=== PATIENT | female | born 1960 | race American Indian/Alaskan Native ===

== ENCOUNTER 2016-07-25 06:57 | Inpatient (IN) | payer OTHER ==
--- NOTE | 2016-07-18 13:57 | Anesthesia Consultation ---
Anesthesia Consult and Med Hx Date of service: 07/18/16 - Airway Anesthetic Teeth Evaluation: Good, Bridges (rear) ROM Head & Neck: Adequate Mental/Hyoid Distance: Adequate Mallampati Class: Class II Intubation Access Assessment: Probably Good - Pulmonary Exam CTA: Yes - Cardiac Exam Cardiac Exam: RRR - Pre-Operative Health Status ASA Pre-Surgery Classification: ASA3 Proposed Anesthetic Plan: General - Pulmonary Hx Smoking: Yes (2 PACKS PER WEEK X 3 MONTHS) Hx Asthma: Yes (EXCERISE INDUCED, LAST EPISODE 2011) Hx Sleep Apnea: Yes (DX SLEEP APNEA WITH CPAP USE.) - Cardiovascular System Hx Hypertension: No - Central Nervous System Hx Back Pain: Yes Hx Psychiatric Problems: Yes (depression, PTSD) - Gastrointestinal Hx Gastroesophageal Reflux Disease: Yes (Hiatal hernia) - Endocrine Hx Non-Insulin Dependent Diabetes: Yes (no meds) - Hematic Hx Anemia: Yes - Other Systems Hx Cancer: No Hx Obesity: Yes (BMI 36.3) - Additional Comments Anesthesia Medical History Comments: NAILAD, OA. Irregular heart beat in 2010. Hiatal hernia
[2016-07-18 14:22] LABS: Alanine Aminotransferase 12 units/L (7-56); Albumin/Globulin Ratio 1.1 %; Alkaline Phosphatase 73 units/L (35-129); Anion Gap 20 mmol/L; BUN/Creatinine Ratio 14.28; Blood Urea Nitrogen 10 mg/dL (7-17); Calcium 8.8 mg/dL (8.4-10.2); Carbon Dioxide 21 mmol/L (22-30); Chloride 103.4 mmol/L (98-107); Glucose 98 mg/dL (65-100); Potassium 4.1 mmol/L (3.6-5.0); Sodium 140 mmol/L (137-145); Total Protein 7.5 g/dL (6.3-8.2)
[2016-07-18 14:23] LABS: Basophils % (Auto) 0.8 % (0.0-1.8); Eosinophils % (Auto) 4.9 % (0.0-4.3); Hematocrit 41.2 % (30.3-42.9); Hemoglobin 13.1 gm/dl (10.1-14.3); Mean Corpuscular HGB Conc 32 % (30-34); Mean Corpuscular Hemoglobin 27 pg (28-32); Mean Corpuscular Volume 85 fl (79-97); Platelet Count 277 K/mm3 (140-440); Red Blood Count 4.83 M/mm3 (3.65-5.03); Red Cell Distribution Width 14.7 % (13.2-15.2); White Blood Count 6.6 K/mm3 (4.5-11.0)
[2016-07-18 14:34] LABS: INR 0.96 (0.87-1.13)
[2016-07-18 14:35] LABS: Partial Thromboplastin Time 33.6 Sec. (24.2-36.6)
--- NOTE | 2016-07-24 20:10 | Admit Criteria Form ---
Admission Criteria Documentation: AMBULATORY SURGERY EXCEPTION CRITERIA Ambulatory Surgery Exception Criteria ( Place 'X' for any and all applicable criteria): Surgery or procedure performed on ambulatory basis may require inpatient stay for[A] ANY ONE of the following(1)(2)(3)(4)(5)(6)(7)(8)(9): [X] I. A preoperative situation, condition, or finding that warrants inpatient stay as indicated by ANY ONE of the following: [] a) Inpatient care needed because of severity of a disease or condition rather than the surgery (eg, severe cardiac or respiratory disease, severe infection) (15) (16 ) (17) (18) [] b) Emergent procedure (eg, angioplasty for acute ischemia)(19) [] c) Complex surgical approach or situation as indicated by ANY ONE of the following(3): [] i) Open approach needed instead of usual endoscopic, transcatheter, or other less invasive procedure [] ii) Difficult approach because of previous operation [] iii) Airway monitoring required after open neck procedures(20)(21) [] iv) Large mass requiring unusually extensive dissection [] v) Additional complicating feature requiring inpatient care (eg, drain management)(22(23): [X] d) Major surgery in a pt with high anesthetic risk as indicated by ANY ONE of the following (2)(3)(5)(7)(8): [X] i) ASA risk class III or higher (severe systemic disease impairing function) [D] [] ii) Advanced age (eg, older than 85 years)(14)(24) [] iii) Symptomatic heart failure(25) [] iv) Symptomatic asthma or COPD(8)(21) [] v) Morbid obesity with hemodynamic or respiratory problems(20)( 21)(26)(27) [] vi) Obstructive sleep apnea(20)(21) [] vii) Former premature infants who are younger than 60 weeks [] viii) High risk for severe postoperative abnormalities (eg, severe postoperative hypocalcemia after parathyroidectomy for severe hyperparathyroidism)(27)( 28) [] ix) Unstable angina(25) [] e) Drug-related risk requiring inpatient stay as indicated by ANY ONE of the following(5)(10)(14)(32)(33) [] i) Procedure requires discontinuing drugs or other therapy (eg , antiarrhythmic medication, antiseizure medication), which necessitates inpatient observation or treatment.(18)(31) [] ii) Major surgery and high risk drug use as indicated by ANY ONE of the following: [] 1) Active abuse of cocaine or similar drug [] 2) Monoamine oxidase inhibitor use [] 3) Other drug identified as posing risk [] f) Inadequate outpatient care situation as indicated by ANY ONE of the following(5)(10)(14)(32)(33) [] i) Patient lives remote from medical facility and procedure has urgent complication potential, and temporary nearby residence cannot be arranged [] ii) Patient will have postprocedure incapacitation and inadequate assistance at home, or alternative level of care cannot be arranged. [] iii) Patient will have long general anesthesia or procedure side effect resolution time, and competent person to stay with patient on first postoperative night at home or alternative level of care cannot be arranged. []iv) Other inadequate outpatient situation that cannot be handled by other means [] II. A perioperative event, condition, or finding that warrants inpatient stay as indicated by ANY ONE of the following (1)(2)(3): [] a) Inadequate physiologic recovery: cardiovascular, respiratory, or hemodynamic status not normal or near preoperative baseline(18) [] b) Hemodynamic instability [] c) Patient not alert with near normal or baseline mental status [] d) Temperature not normal or as expected and not appropriate for outpatient treatment of condition [] e) Ambulatory or appropriate activity level status not yet achieved post procedure [E](34)(35)(36) [] f) Operative site not appropriate (eg, unexpected or excessive drainage or bleeding) [] g) Postoperative effects not resolved or adequately managed (eg, significant pain or vomiting not appropriate for outpatient or next level of care)(10)(12) [] h) Complicating features requiring inpatient care as indicated by ANY ONE of the following(37): [] i) Severe complications of procedure (eg, bowel injury, airway compromise, vascular injury,severe hemorrhage) [] ii) Extensive (eg, dissection far beyond usual scope of procedure ) or prolonged (eg, 120 minutes beyond usual) surgery needed requiring inpatient postoperative care [] iii) Conversion to an open or complex procedure that requires inpatient care (eg, open vs laparoscopic cholecystectomy, abdominal vs vaginal hysterectomy)(38) [] iv) Comorbid condition or test result identified during or post procedure that requires inpatient care (7) [] v) Malignant hyperthermia(30) [] vi) Other complicating feature requiring inpatient care(22)(23) Inpatient stay may be needed until ALL of the following are present (1)(2)(3)(4) (5)(6)(10)(14)(33)(40): []a) Physiologic recovery: cardiovascular, respiratory, and hemodynamic status normal or near preoperative baseline []b) Hemodynamic stability []c) Patient alert, with near normal or baseline mental status []d) Temperature appropriate: patient afebrile or temperature appropriate for outpt treatment of condition []e) Activity level appropriate: ambulatory or appropriate activity level post procedure []f) Operative site appropriate as indicated by ALL of the following: []i) Site dry or with expected drainage []ii) Any blood noted is as expected for procedure. []g) Postoperative effects resolved or managed as indicated by ALL of the following: []i) Pain management appropriate for outpatient (or next level of) care(10) []ii) Minimal nausea and vomiting: if present, successfully treated with oral medication(12) []iii) Headache, dizziness, or drowsiness (if present) are mild. []h) Voiding status acceptable as indicated by ANY ONE of the following: []i) Voiding spontaneously []ii) No voiding but instructions given for follow-up in 6 to 8 hours []iii) Urinary catheter in place, and instructions given for follow-up []i) Complicating features requiring inpatient care manageable at a lower level of care(37) []j) Comorbid conditions manageable at a lower level of care(37) The original [employer] content created by [employer] has been revised. The portions of the content which have been revised are identified through the use of italic text or in bold, and [employer] [facility] [employer] has neither reviewed nor approved the modified material. All other unmodified content is copyright [employer]. Please see references footnoted in the original [employer] edition 2016 Admission Criteria Met: Yes
[~2016-07-25 06:57] MED LIST: DILAUDID ONE; DIPRIVAN 10 MG/ML IV ONE; NACL P/F VIAL (10 ML) IV ONE; NEOSTIGMINE ONE; QUELICIN ONE; ROBINUL ONE; TRANEXAMIC ACID IV ONE; VANCOMYCIN VIAL IV ONE; VANCOMYCIN/NS 1 GM/250 ML 1 GM/250 ML BAG IV NR; XYLOCAINE MPF 2% ONE; ZEMURON IV ONE
--- NOTE | 2016-07-25 07:03 | Anesthesia Day of Surgery ---
Anesthesia Day of Surgery - Day of Surgery Patient Examined: Yes Patient H&P Reviewed: Yes Patient is NPO: Yes
[2016-07-25] MEDS ORDERED: ACD-A 500 ML IV ONE (07:15)
[2016-07-25] MEDS ORDERED: NACL ONE (07:15)
[2016-07-25] MEDS ORDERED: TRANEXAMIC ACID ONE (07:16)
[2016-07-25] MEDS ORDERED: VANCOMYCIN VIAL ONE (07:16)
[2016-07-25] MEDS ORDERED: NEOSPORIN GU IR ONE (07:16)
[2016-07-25] MEDS ORDERED: NACL P/F VIAL (10 ML) 30 ML ONE (07:16)
[2016-07-25] MEDS ORDERED: MARCAINE-EPI 0.25%-1:200,000 INFILTRATI ONE ×2 (07:16→09:42)
[2016-07-25] MEDS ORDERED: NACL 0.9% 1000 ML 1,000 ML IV SCH (07:26)
[2016-07-25] MEDS ORDERED: PEPCID PO NR (07:26)
[2016-07-25] MEDS ORDERED: VERSED IV NR (07:26)
[2016-07-25] MEDS ORDERED: ZOFRAN IV PRN (07:28)
[2016-07-25] MEDS ORDERED: MARCAINE 0.25% INFILTRATI ONE (07:47)
[2016-07-25] MEDS ORDERED: SODIUM CHLORIDE FLUSH SYRINGE 10 ML IV PRN (07:53)
[2016-07-25] MEDS ORDERED: NARCAN 0.4 MG/1 ML IV PRN (07:53)
[2016-07-25] MEDS ORDERED: TRANSDERM-SCOP TD NR (08:00)
[2016-07-25] MEDS ORDERED: DECADRON ONE (08:04)
[2016-07-25] MEDS ORDERED: ZOFRAN ONE (08:04)
[2016-07-25] MEDS ORDERED: MILK OF MAGNESIA PO PRN (09:24)
[2016-07-25] MEDS ORDERED: DULCOLAX PR PRN (09:24)
[2016-07-25] MEDS ORDERED: PERCOCET 5/325 PO PRN (09:24)
[2016-07-25] MEDS ORDERED: AMBIEN PO PRN (09:24)
[2016-07-25] MEDS ORDERED: PHENERGAN PR PRN (09:24)
[2016-07-25] MEDS ORDERED: TORADOL IV PRN (09:24)
[2016-07-25] MEDS ORDERED: NACL 0.9% 1000 ML 1,000 ML ONE (09:31)
[2016-07-25] MEDS ORDERED: NACL 0.9% IV ONE (09:42)
[2016-07-25] MEDS ORDERED: ASPIRIN PO SCH (10:00)
[2016-07-25] MEDS ORDERED: D5NS 1,000 ML IV SCH ×2 (10:00→14:00)
[2016-07-25] MEDS ORDERED: VANCOMYCIN VIAL IV ONE (12:09)
[2016-07-25] MEDS ORDERED: TRANEXAMIC ACID IV ONE (12:10)
[2016-07-25] MEDS ORDERED: NACL P/F VIAL (10 ML) IV ONE (12:10)
[2016-07-25] MEDS: DILAUDID IV PRN ×4 (12:55→14:40)
[2016-07-25] MEDS ORDERED: XYLOCAINE MPF 2% ONE (13:04)
--- NOTE | 2016-07-25 13:27 | Post Anesthesia Evaluation ---
- Post Anesthesia Evaluation Patient Participated: Yes Airway Patent: Yes Stable Respiratory Function: Yes Nausea/Vomiting: No Temp > 96.8F: Yes Pain Manageable: Yes Adequeate Hydration: Yes Anesthesia Complications: No Block Receding Appropriately: Yes Patient on Ventilator: No
[2016-07-25] MEDS ORDERED: TYLENOL PO PRN (13:30)
[2016-07-25] MEDS ORDERED: NORCO 5/325 PO PRN (13:30)
--- NOTE | 2016-07-25 13:36 | Procedure Note ---
Date of procedure: 07/25/16 Pre-op diagnosis: AvN bilateral hips Procedure: Left total hip replacement, DAA Percutaneous drilling, core decompression right hip Anesthesia: GETA Surgeon: PRESLEY EVLAZQUEZ [employer] Flight Attendant: JUANA MENEZES Estimated blood loss: 50-100ml Pathology: list (femoral head) Specimen disposition: to lab Condition: stable Disposition: floor
[2016-07-25] MEDS: fentaNYL-BUPIV 2 MCG/ML-0.125% 200 MCG/100 ML BAG EPIDURAL SCH (14:45)
[2016-07-25] MEDS: ANCEF/NS 1 GM/50 ML 1 GM/50 ML BAG IV SCH (17:59)
[2016-07-25] MEDS: COLACE PO SCH (22:08)
[2016-07-25] MEDS: ASPIRIN PO SCH (22:08)
[2016-07-25] MEDS: TORADOL IV PRN (22:09)
[2016-07-26] MEDS: fentaNYL-BUPIV 2 MCG/ML-0.125% 200 MCG/100 ML BAG EPIDURAL SCH (01:24)
[2016-07-26] MEDS: ZOFRAN IV PRN ×2 (03:38→21:41)
[2016-07-26] MEDS: MORPHINE IV PRN ×3 (03:38→23:43)
[2016-07-26] MEDS ORDERED: BENADRYL IV ONE ×2 (03:54→13:57)
[2016-07-26] MEDS: ANCEF/NS 1 GM/50 ML 1 GM/50 ML BAG IV SCH (04:07)
[2016-07-26] MEDS ORDERED: ANCEF/NS 1 GM/50 ML 1 GM/50 ML BAG IV SCH (05:00)
--- NOTE | 2016-07-26 06:22 | Consultation ---
History of Present Illness - Reason for Consult Consult date: 07/25/16 Requesting physician: PRESLEY VELAZQUEZ - History of Present Illness 55 YO Female with Metabolic Syndrome, Obesity, Asthma, DJD, HIRO on CPAP, OA admitted for Left THR. consult placed for medical management. Pt denies fever, chills, CP, Palpitation, NVD, recent ill contacts, leg swelling, calf pain, individual/family history of DVT/PE, prolonged travel, immobility, productive cough or skin rashes. Past History Past Medical History: other (Asthma, Nicotine Dependence, Metabolic Syndrome, HIRO) Past Surgical History: hernia repair Social history: single, smoking. denies: alcohol abuse, prescription drug abuse Family history: diabetes, hypertension Medications and Allergies Allergies Allergy/AdvReac Type Severity Reaction Status Date / Time No Known Allergies Allergy Verified 04/23/15 15:58 Home Medications Medication Instructions Recorded Confirmed Last Taken Type Cetirizine HCl [ZyrTEC] 10 mg PO DAILY 03/20/16 07/13/16 Unknown History HYDROcodone/APAP 5-325 [[place] 1 tab PO PRN PRN 03/20/16 07/13/16 Unknown History 5-325 mg TAB] Ibuprofen [Motrin] 800 mg PO Q8HR PRN 03/20/16 07/13/16 Unknown History Omeprazole Magnesium [PriLOSEC Otc] 20 mg PO PRN PRN 03/20/16 07/13/16 Unknown History Trazodone HCl [Oleptro ER] 150 mg PO PRN PRN 03/20/16 07/13/16 Unknown History Active Meds: Active Medications Acetaminophen (Tylenol) 650 mg PO Q4H PRN PRN Reason: Pain MILD(1-3)/Fever >100.5/VAZQUEZ Acetaminophen/Hydrocodone Bitart ([place] 5/325) 1 each PO Q6H PRN PRN Reason: Pain, Moderate (4-6) Aspirin (Aspirin) 325 mg PO BID [facility] Aspirin (Aspirin) 325 mg PO BID [facility] Last Admin: 07/25/16 22:08 Dose: 325 mg Bisacodyl (Dulcolax) 10 mg GA QDAY PRN PRN Reason: Constip unreliev by MOM/or NPO Celecoxib (Celebrex) 100 mg PO BID [facility] Last Admin: 07/25/16 22:07 Dose: 100 mg Docusate Sodium (Colace) 100 mg PO BID [facility] Last Admin: 07/25/16 22:08 Dose: 100 mg Sodium Chloride (Nacl 0.9% 1000 Ml) 1,000 mls @ 75 mls/hr IV DIRECT TANYA Last Admin: 07/25/16 07:47 Dose: 75 mls/hr Dextrose/Sodium Chloride (D5ns) 1,000 mls @ 100 mls/hr IV DIRECT TANYA Last Admin: 07/26/16 03:50 Dose: 100 mls/hr Ketorolac Tromethamine (Toradol) 15 mg IV Q6H PRN PRN Reason: Pain, Mild (1-3) Stop: 07/30/16 09:23 Ketorolac Tromethamine (Toradol) 30 mg IV Q6H PRN PRN Reason: Pain, Moderate (4-6) Stop: 07/30/16 09:23 Last Admin: 07/25/16 22:09 Dose: 30 mg Magnesium Hydroxide (Milk Of Magnesia) 30 ml PO Q4H PRN PRN Reason: Constipation Morphine Sulfate (Morphine) 2 mg IV Q4H PRN PRN Reason: Pain, Moderate (4-6) Morphine Sulfate (Morphine) 4 mg IV Q4H PRN PRN Reason: Pain , Severe (7-10) Last Admin: 07/26/16 03:38 Dose: 4 mg Ondansetron HCl (Zofran) 4 mg IV Q8H PRN PRN Reason: Nausea And Vomiting Last Admin: 07/26/16 03:38 Dose: 4 mg Oxycodone HCl (Oxycontin) 10 mg PO Q12HR [facility] Oxycodone/Acetaminophen (Percocet 5/325) 1 tab PO Q6H PRN PRN Reason: Pain, Moderate (4-6) Promethazine HCl (Phenergan) 25 mg GA Q6H PRN PRN Reason: Nausea And Vomiting Sodium Chloride (Sodium Chloride Flush Syringe 10 Ml) 10 ml IV PRN PRN PRN Reason: LINE FLUSH Zolpidem Tartrate (Ambien) 5 mg PO QHS PRN PRN Reason: Sleep Review of Systems All systems: negative Constitutional: other (Left hip pain) Exam - Constitutional Vitals: Temp Pulse Resp BP Pulse Ox 98.1 F 86 20 123/79 100 07/26/16 05:02 07/26/16 05:02 07/26/16 05:02 07/26/16 05:02 07/26/16 05:02 General appearance: Present: no acute distress, well-nourished - EENT Eyes: Present: PERRL ENT: hearing intact, clear oral mucosa - Neck Neck: Present: supple, normal ROM - Respiratory Respiratory effort: normal Respiratory: bilateral: CTA - Cardiovascular Heart Sounds: Present: S1 & S2. Absent: rub, click - Extremities Extremities: pulses symmetrical, No edema Peripheral Pulses: within normal limits - Abdominal General gastrointestinal: Present: soft, non-tender, non-distended, normal bowel sounds Female genitourinary: Present: normal - Integumentary Integumentary: Present: clear, warm, dry - Musculoskeletal Musculoskeletal: gait normal, strength equal bilaterally - Psychiatric Psychiatric: appropriate mood/affect, intact judgment & insight - Neurologic Neurologic: CNII-XII intact, moves all extremities Results - Labs CBC & Chem 7: 07/18/16 13:25 07/18/16 13:25 Assessment and Plan - Patient Problems (1) DJD (degenerative joint disease) Current Visit: Yes Status: Acute Qualifiers: Osteoarthritis location: O Osteoarthritis type: O Spinal region: S Spinal osteoarthritis complication: S Laterality: L Plan to address problem: S/P Left THR, (2) Metabolic syndrome Current Visit: Yes Status: Acute Plan to address problem: Pt counseled regarding increased physical activity, balanced diet, (3) Obesity Current Visit: Yes Status: Acute Qualifiers: Obesity type: O Obesity severity: O Plan to address problem: Pt counseled, supportive care (4) Asthma Current Visit: Yes Status: Acute Qualifiers: Asthma severity: mild intermittent Asthma complication type: A Plan to address problem: Stable, No exacerbation at this time, supplemental oxygen, incentive spirometry , early ambulation. (5) DVT prophylaxis Current Visit: Yes Status: Acute
[2016-07-26] MEDS: OxyCONTIN PO SCH ×3 (08:00→21:42)
[2016-07-26] MEDS: ASPIRIN PO SCH ×3 (08:20→21:41)
[2016-07-26] MEDS: COLACE PO SCH ×3 (08:21→21:43)
--- NOTE | 2016-07-26 09:53 | XRay Report ---
PELVIS, ONE VIEW History: Intraoperative film, left hip replacement. Findings: Fluoroscopy was provided by radiology during surgery for Dr. Yeh. Right hip core decompression and left anterior total hip arthroplasty changes are evident. The hardware is well applied. No acute abnormality is appreciated. Please correlate with the procedural report. Impression: Surgical changes as described. No acute abnormality.
[2016-07-26] MEDS: TORADOL IV PRN (10:39)
--- NOTE | 2016-07-26 18:25 | Progress Note ---
Assessment and Plan - Patient Problems (1) H/O total hip arthroplasty Current Visit: Yes Status: Acute Qualifiers: Laterality: L Plan to address problem: Continue with rehabilitation program, weightbearing as tolerated, DVT prophylaxis; possible discharge tomorrow. Subjective Date of service: 07/26/16 Interval history: Status post total hip arthroplasty, out of bed, walking. No complaints of pain , no neurovascular deficit. Objective Vital signs: Vital Signs - 12hr 07/26/16 07/26/16 08:12 11:43 Temperature 97.8 F Pulse Rate [ 77 Right From Monitor] Respiratory 21 Rate Blood Pressure 124/74 [Right Arm] O2 Sat by Pulse 97 Oximetry - Labs CBC & BMP: 07/18/16 13:25 07/18/16 13:25
[2016-07-27] MEDS: MORPHINE IV PRN (06:28)
--- NOTE | 2016-07-27 07:18 | Discharge Summary ---
Providers - Providers Date of Admission: 07/25/16 06:57 Attending physician: PRESLEY VELAZQUEZ 07/25/16 00:01 Consult to Case Management [CONS] Routine Services Needed at Discharge: Home Health Services Physical Therapy Notified:: cm notified Consult to Physician [CONS] Routine Consulting Provider: ELENA YOUNG Reason For Exam: for post op medical management Place consult to:: cellphone Notified:: yes Phone number called:: [phone] Was contact made?: Yes If yes, spoke with:: Time called:: 18:10 07/26/16 09:00 Physical Therapy Evaluation and Treat [CONS] Routine Comment: Reason For Exam: s/p total hip, eval and treat Primary care physician: JOYCE ALONSO Hospitalization Disposition: STILL A PATIENT Core Measure Documentation - Palliative Care Palliative Care/ Comfort Measures: Not Applicable - Core Measures Any of the following diagnoses?: none - VTE Discharge Requirements Deep Vein Thrombosis/Pulmonary Embolism Present on Admission: No Has pt received <5 days of overlap therapy or INR<2.0: No Anticoagulant overlap therapy prescribed at discharge: Yes Exam - Constitutional Vitals: Temp Pulse Resp BP Pulse Ox 97.8 F 77 21 124/74 97 07/26/16 08:12 07/26/16 08:12 07/26/16 08:12 07/26/16 08:12 07/26/16 22:06 Plan Activity: advance as tolerated Weight Bearing Status: Weight Bear as Tolerated Diet: regular Wound: keep clean and dry Durable Medical Equipment Needed Upon Discharge: Walker-Rolling Follow up with: JOYCE ALONSO MD [Primary Care Provider] - 7 Days
[2016-07-27 09:37] VITALS: BP 111/66
--- NOTE | 2016-07-27 09:51 | Progress Note ---
Subjective Date of service: 07/27/16 Interval history: 2nd POD after right total hip arthroplasty. Patient is in the bed, comfortable. Pain is well controlled with pain meds. Ambulated well. No residual neurological deficit. No nausea or vomiting. No anesthesia complications Objective - Constitutional Vitals: Vital Signs - 12hr 07/26/16 07/26/16 07/27/16 22:00 22:06 08:00 Temperature 98.4 F Pulse Rate [ 69 Right From Monitor] Respiratory 18 Rate Blood Pressure 111/66 [Right Arm] O2 Sat by Pulse 98 97 99 Oximetry - Labs CBC & Chem 7: 07/18/16 13:25 07/18/16 13:25
[2016-07-27] MEDS: OxyCONTIN PO SCH (10:12)
[2016-07-27] MEDS: COLACE PO SCH (10:14)
--- NOTE | 2016-07-27 11:11 | Progress Note ---
Assessment and Plan Assessment and plan: (1) DJD (degenerative joint disease) Current Visit: Yes Status: Acute Qualifiers: Osteoarthritis location: O Osteoarthritis type: O Spinal region: S Spinal osteoarthritis complication: S Laterality: L Plan to address problem: S/P Left THR, pain controlled, PT (2) Metabolic syndrome Current Visit: Yes Status: Acute Plan to address problem: Counseled regarding increasing physical activity, balanced diet, losing weight (3) Obesity Current Visit: Yes Status: Acute Qualifiers: Obesity type: O Obesity severity: O Plan to address problem: Counseled (4) Asthma Current Visit: Yes Status: Acute Qualifiers: Asthma severity: mild intermittent Asthma complication type: A Plan to address problem: Stable. No exacerbation (5) DVT prophylaxis Current Visit: Yes Status: Acute History Interval history: doing well, pain controlled, participated in PT Hospitalist Physical - Constitutional Vitals: Temp Pulse Resp BP Pulse Ox 98.4 F 69 18 111/66 99 07/27/16 08:00 07/27/16 08:00 07/27/16 08:00 07/27/16 08:00 07/27/16 08:00 General appearance: Present: no acute distress, obese - EENT Eyes: Present: PERRL, EOM intact. Absent: scleral icterus, conjunctival injection - Neck Neck: Present: supple, normal ROM. Absent: masses or JVD - Respiratory Respiratory effort: normal Respiratory: bilateral: CTA, negative: rhonchi, wheezing - Cardiovascular Rhythm: regular Heart Sounds: Present: S1 & S2. Absent: systolic murmur - Extremities Extremities: no ischemia - Abdominal General gastrointestinal: soft, non-tender, non-distended, normal bowel sounds - Psychiatric Psychiatric: cooperative - Neurologic Neurologic: CNII-XII intact, no focal deficits Results - Labs CBC & Chem 7: 07/18/16 13:25 07/18/16 13:25 Labs: Laboratory Last Values WBC 6.6 K/mm3 (4.5-11.0) 07/18/16 13:25 RBC 4.83 M/mm3 (3.65-5.03) 07/18/16 13:25 Hgb 13.1 gm/dl (10.1-14.3) 07/18/16 13:25 Hct 41.2 % (30.3-42.9) 07/18/16 13:25 MCV 85 fl (79-97) 07/18/16 13:25 MCH 27 pg (28-32) L 07/18/16 13:25 MCHC 32 % (30-34) 07/18/16 13:25 RDW 14.7 % (13.2-15.2) 07/18/16 13:25 Plt Count 277 K/mm3 (140-440) 07/18/16 13:25 Lymph % (Auto) 40.3 % (13.4-35.0) H 07/18/16 13:25 Green % (Auto) 8.5 % (0.0-7.3) H 07/18/16 13:25 Eos % (Auto) 4.9 % (0.0-4.3) H 07/18/16 13:25 Baso % (Auto) 0.8 % (0.0-1.8) 07/18/16 13:25 Lymph # 2.7 K/mm3 (1.2-5.4) 07/18/16 13:25 Green # 0.6 K/mm3 (0.0-0.8) 07/18/16 13:25 Eos # 0.3 K/mm3 (0.0-0.4) 07/18/16 13:25 Baso # 0.1 K/mm3 (0.0-0.1) 07/18/16 13:25 Seg Neutrophils % 45.5 % (40.0-70.0) 07/18/16 13:25 Seg Neutrophils # 3.0 K/mm3 (1.8-7.7) 07/18/16 13:25 PT 12.7 Sec. (12.2-14.9) 07/18/16 13:25 INR 0.96 (0.87-1.13) 07/18/16 13:25 APTT 33.6 Sec. (24.2-36.6) 07/18/16 13:25 Sodium 140 mmol/L (137-145) 07/18/16 13:25 Potassium 4.1 mmol/L (3.6-5.0) 07/18/16 13:25 Chloride 103.4 mmol/L (98-107) 07/18/16 13:25 Carbon Dioxide 21 mmol/L (22-30) L 07/18/16 13:25 Anion Gap 20 mmol/L 07/18/16 13:25 BUN 10 mg/dL (7-17) 07/18/16 13:25 Creatinine 0.7 mg/dL (0.7-1.2) 07/18/16 13:25 Estimated GFR > 60 ml/min 07/18/16 13:25 BUN/Creatinine Ratio 14.28 % 07/18/16 13:25 Glucose 98 mg/dL (65-100) 07/18/16 13:25 Calcium 8.8 mg/dL (8.4-10.2) 07/18/16 13:25 Total Bilirubin 0.40 mg/dL (0.1-1.2) 07/18/16 13:25 AST 20 units/L (5-40) 07/18/16 13:25 ALT 12 units/L (7-56) 07/18/16 13:25 Alkaline Phosphatase 73 units/L (35-129) 07/18/16 13:25 Total Protein 7.5 g/dL (6.3-8.2) 07/18/16 13:25 Albumin 4.0 g/dL (3.9-5) 07/18/16 13:25 Albumin/Globulin Ratio 1.1 % 07/18/16 13:25 Blood Type O POSITIVE 07/18/16 13:25 Antibody Screen TNR 07/18/16 13:25 SARAN Antibody Screen Negative 07/18/16 13:25
--- NOTE | 2016-08-01 06:46 | Operative Report ---
PREOPERATIVE DIAGNOSIS: Bilateral avascular necrosis of the hip. PROCEDURES: 1. Right percutaneous core decompression of the femoral head. 2. Left total hip replacement arthroplasty, direct anterior approach. SURGEON: Dontrell Yeh M.D. PLANT SPECIALIST: Rony Hood RN ANESTHESIA: General. COMPLICATIONS: None. DESCRIPTION OF THE PROCEDURE: Once the patient was in surgical room, a time-out was carried out to identify the patient and procedure. The patient was placed in the [place] table. The procedure was carried out by setting up the patient for surgery on the right hip. Once the prepping and draping of the patient was done, the large isolation drape was carried out. Using fluoroscopy, a 2 cm incision was carried out in the lateral aspect of the thigh. This allowed for the insertion of the guidewire which was under fluoroscopy in both AP and lateral planes, was passed into the femoral neck all the way into the defect in the femoral head. Once this guidewire was in place, the targeting device was used and multiple drill holes were carried out into the area. Once the area of necrosis was thinned out, the procedure was terminated. The wound was infiltrated with Marcaine with epinephrine and the skin was closed with the skin clips. A compression bandage was applied. At this point, breaking of the femur was done. Rearranging of the patient was carried out on the surgical table to allow full exposure of the hip on the left for total hip replacement, re-prepping and draping of the patient was done. The surgeon changed gowns and gloves. The second procedure was carried out by making an incision 15 cm in length in front of the hip on the left, 2 cm below the anterior superior iliac spine and extending distally for 15 cm. Dissection was carried down to the subcutaneous tissues allowing exposure of the fascia of the sartorius. Sartorius fascia was incised. The muscle was identified and reflected exposing the anterior aspect of the hip joint. A bovie inserted, the connecting vessels in the area were coagulated, the fat pad was excised. Retractors was inserted superior and inferior to the hip joint. Then was inserted into the pelvis. Once this was done, the procedure was continued by doing an anterior capsulectomy of the hip. The capsulectomy was carried out without any problems. Retractors were inserted inside the capsule protecting the neck. The procedure was continued at this point by removal of the head. The neck was cut using napkin ring technique. The femur marker was removed. At this point, preparation of the acetabulum was done. Resection of the labrum was done, followed by reaming. This was done without any problems. Using fluoroscopy, the position of the cup was demonstrated and once this was done, the cup was inserted, locked in place, again checked in fluoroscopy and fixated in place with one single screw. The posterior liner was applied. At this point, the attention was carried down to the femur, the [place] table was used to be able to bring the leg to adduction and extension, freeing up of the capsule around the femoral neck was carried out, the hip was mobilized anteriorly. Using a mallet and a driver engineer, ostectomy of the superior aspect of the neck was carried out. This allowed for insertion of multiple rasps. Prior to insertion of the rasps, a guidewire was placed into the femur down to 10 mm. The rasps were inserted and the reaming of the femur was carried out without any problems. Once the reaming rasps were in place the head was applied and measurement of leg length was done. Once it was determined the rasps were removed. The actual prosthetic device inserted, was in place and the procedure terminated. Once the hip was stable, the wound was irrigated and closed using TopofForm Tranexamic acid, Vicryl suture and the skin clips. The patient tolerated the procedure well and there were no complications.BottomofForm JOB# [id number] ROBERT/SAVAGE BARKER
== END 2016-07-27 11:15 | disposition home health service (06) | DRG 470 ==
LOC: 3A 06:57 → 2B-SURG 13:38
PROC: 0SRB0JZ Replacement of Left Hip Joint with Synthetic Substitute, Open Approach (ICD-10-PCS; principal; 2016-07-25)
DX: M87.052 Idiopathic aseptic necrosis of left femur (principal); E66.9 Obesity, unspecified; E88.81 Metabolic syndrome and other insulin resistance; J45.909 Unspecified asthma, uncomplicated; F17.200 Nicotine dependence, unspecified, uncomplicated; G47.30 Sleep apnea, unspecified; F32.9 Major depressive disorder, single episode, unspecified; F43.10 Post-traumatic stress disorder, unspecified; K21.9 Gastro-esophageal reflux disease without esophagitis; M19.90 Unspecified osteoarthritis, unspecified site; Z68.36 Body mass index [BMI] 36.0-36.9, adult; Z71.3 Dietary counseling and surveillance; Z88.8 Allergy status to other drugs, medicaments and biological substances; Z91.048 Other nonmedicinal substance allergy status; Z90.710 Acquired absence of both cervix and uterus
CPT/HCPCS: 36415; 62324; 72170; 80053; 85025; 85610; 85730; 86850; 86900; 86901; 88304; 88305; 88311; 99406; C1769; C1776; J0330; J0690; J1100; J1170; J1200; J1885; J2250; J2270; J2405; J2704; J2710; J3370; J7030; J7042

== ENCOUNTER 2019-05-08 12:17 | Outpatient (CLI) | payer MEDICARE, OTHER ==
[2019-05-08 13:17] LABS: Alanine Aminotransferase 30 units/L (7-56); Albumin 4.2 g/dL (3.9-5); BUN/Creatinine Ratio 11; Blood Urea Nitrogen 9 mg/dL (7-17); Calcium 9.3 mg/dL (8.4-10.2); Hemolysis Index 1
[2019-05-08 13:27] LABS: Hemoglobin 13.7 gm/dl (10.1-14.3); Mean Corpuscular HGB Conc 33 % (30-34); Mean Corpuscular Volume 85 fl (79-97); Platelet Count 284 K/mm3 (140-440); Red Blood Count 4.97 M/mm3 (3.65-5.03); Red Cell Distribution Width 14.2 % (13.2-15.2)
== END 2019-05-08 12:18 | disposition home or self-care (01) ==
LOC: LAB 12:17
PROVIDERS: ATTEND Specialist
DX: R55 Syncope and collapse (principal)
CPT/HCPCS: 36415; 80053; 85027